=== PATIENT | male | born 1990 | race Hispanic/Latino ===

== ENCOUNTER 2022-01-12 20:35 | Emergency (ER) | payer SELFPAY ==
[~2022-01-12] VITALS: Ht 177.8 cm; Wt 113.4 kg
[2022-01-12] MEDS ORDERED: LIDOCAINE 4% PATCH TP STA (21:17)
[2022-01-12] MEDS ORDERED: DEXAMETHASONE 4 MG TAB PO STA (21:17)
[2022-01-12] MEDS ORDERED: KETOROLAC TROMETHAMINE 30 MG/ML VIAL IM STA (21:17)
[2022-01-12] MEDS ORDERED: ACETAMINOPHEN 325 MG TAB PO ONE (21:30)
[2022-01-12] MEDS ORDERED: LIDOCAINE1 EAC1 EXT (21:33)
== END 2022-01-12 22:34 | disposition home or self-care (01) ==
LOC: ER 20:39
DX: M54.9 Dorsalgia, unspecified (principal); R20.0 Anesthesia of skin; I10 Essential (primary) hypertension
CPT/HCPCS: 99283; J1885; J8540